=== PATIENT | female | born 1965 | race Caucasian/White ===

== ENCOUNTER 2023-01-23 15:17 | Emergency (ER) | payer MEDICARE ==
[2023-01-23 15:37] VITALS: BP 148/115; PULSE 73; O2SAT 92
--- NOTE | 2023-01-23 16:06 | ERPHSYRPT ---
- History of Present Illness Time Seen by Provider: 01/23/23 15:23 Source: patient Exam Limitations: no limitations Patient Subjective Stated Complaint: Pt c/o pf left knee pain that she has had for a long while stating that she has bone on bone and that she has had it for a long time and she came here to get it fixed Triage Nursing Assessment: Pt brought to the ER by EMS, hypertensive, rates pain as 9/10, chronic knee pain, pt [place] and keeps yelling how they take her boyfriend to the doctor for every little thing but they never take her and her knee has been hurting for a very long time and they neve taker her but she did say that she has had xrays on it before and that it her knee is bone on bone and that she had a fall today and she wanted to come here today to have surgury on it, tried to explain that isn't how it works and I upset the pt more because she wants it done now, pulses normal, skin n/w/d, doesn't appear to be in any distres Physician History: Patient is here with left knee pain. It is chronic. Has been going on for several months. No known trauma. Patient states that she has known arthritis in that knee. She has previously been referred to a orthopedic surgeon. Jordin duran reports today because she is having increasing pain. States that she is having decreased mobility. Patient has no calf pain, thigh pain, shortness of breath. No other symptoms of pulmonary embolism or DVT. No fever or chills. Denies having any joint effusion. Allergies/Adverse Reactions: codeine Allergy (Severe, Verified 12/25/21 14:45) Penicillins Adverse Reaction (Mild, Verified 12/25/21 14:45) Home Medications: Albuterol Sulfate [Albuterol Sulfate Hfa] 1 inh PO Q4-6HPRN PRN 01/25/20 [History] Levothyroxine Sodium 88 mcg PO DAILY 01/25/20 [History] Levothyroxine Sodium 100 mcg PO DAILY 01/25/20 [History] Oxycodone/APAP 5 mg/325 mg [Percocet Tablet 5/325Mg] 1 tab PO Q4-6HPRN PRN 01/25/20 [History] Hx Influenza Vaccination/Date Given: (unknown) Hx Pneumococcal Vaccination/Date Given: (unknown) Immunizations Up to Date: (unknown) Travel Risk - International Travel Have you traveled outside of the country in past 3 weeks: No - Coronavirus Screening Are you exhibiting any of the following symptoms?: No Close contact with a COVID-19 positive Pt in past 14-21 Days: No - Vaccine Status Have you recieved a Covid-19 vaccination: Yes Muck Operator: Unknown - Vaccination Dates Dates if Unknown: unknown - Review of Systems Constitutional: No Fever, No Chills Eyes: No Symptoms Ears, Nose, & Throat: No Symptoms Respiratory: No Cough, No Dyspnea Cardiac: No Chest Pain, No Edema, No Syncope Abdominal/Gastrointestinal: No Abdominal Pain, No Nausea, No Vomiting, No Diarrhea Genitourinary Symptoms: No Dysuria Musculoskeletal: Other, No Back Pain, No Neck Pain Skin: No Rash Neurological: No Dizziness, No Focal Weakness, No Sensory Changes Psychological: No Symptoms Endocrine: No Symptoms All Other Systems: Reviewed and Negative - Past Medical History Pertinent Past Medical History: Yes Respiratory History: Asthma Endocrine Medical History: Hypothyroidism - Past Surgical History Past Surgical History: Yes Gastrointestinal: Cholecystectomy Female Surgical History: Tubal Ligation Other Surgical History: yaniv carpal tunnel, yaniv bone spur, bladder sling - Social History Smoking Status: Never smoker Exposure to second hand smoke: No Drug Use: none Patient Lives Alone: No - Nursing Vital Signs Nursing Vital Signs: Initial Vital Signs Temperature 97.6 F 01/23/23 15:18 Pulse Rate 73 01/23/23 15:18 Blood Pressure 148/115 01/23/23 15:18 O2 Sat by Pulse Oximetry 92 L 01/23/23 15:18 Pain Scale Pain Intensity 9 - Physical Exam General Appearance: no apparent distress, alert Eye Exam: PERRL/EOMI, eyes nml inspection Ears, Nose, Throat Exam: normal ENT inspection, TMs normal, pharynx normal, moist mucous membranes Neck Exam: normal inspection, non-tender, supple, full range of motion Respiratory Exam: normal breath sounds, lungs clear, No respiratory distress Cardiovascular Exam: regular rate/rhythm, normal heart sounds, normal peripheral pulses Gastrointestinal/Abdomen Exam: soft, normal bowel sounds, No tenderness, No mass Back Exam: normal inspection, normal range of motion, No CVA tenderness, No vertebral tenderness Extremity Exam: normal inspection, normal range of motion, pelvis stable Neurologic Exam: alert, oriented x 3, cooperative, normal mood/affect, nml cerebellar function, nml station & gait, sensation nml, No motor deficits Skin Exam: normal color, warm, dry, No rash Lymphatic Exam: No adenopathy SpO2: 92 Comments: 01/23/23 16:04 Left knee tenderness without effusion. No obvious deformity, sensation intact, 2+ capillary refill, 2 point tactile discrimination intact. 5 out of 5 strength. Full range of motion with some pain. Compartments are soft, nontender. Overlying skin shows no tenting, bruising, ecchymosis. - Course Nursing assessment & vital signs reviewed: Yes Ordered Tests: Active Orders 24 hr Category Date Time Status KNEE (3 VIEWS) Stat Exams 01/23/23 15:51 Completed - Progress Progress: improved Progress Note: 01/23/23 16:05 Differential diagnosis includes musculoskeletal pain, arthritis, knee effusion, fracture. Plan for x-ray of the left knee X-ray demonstrates no fracture, severe osteoarthritis given age- my read Patient will need repeat XRs in one week, if pain continues. Return here or see PCP. 01/23/23 17:23 Counseled pt/family regarding: diagnosis, need for follow-up, rad results Medical Desision Making - Independent Historian Additional History obtained from: EMS - Social Determinants of Health Pt's dx & treatment plan are significantly limited by SDOH: illiteracy Limited access to: transportation - Diagnostic Testing Diagnostic test were ordered, analyzed, and reviewed by me: Yes Radiological Interpretation: Interpreted by me - Risk of complications Minimal Risk: Minimal risk of morbidity - Departure Departure Disposition: Home Clinical Impression: Left knee pain Condition: Stable Critical Care Time: No Referrals: ESAU JONES MD [Primary Care Provider] - Follow up/PCP as directed Instructions: Knee Sprain (DC) Additional Instructions: Sprain
--- NOTE | 2023-01-23 16:54 | XRAY ---
CLINICAL HISTORY:knee pain COMPARISON:None; TECHNIQUES:X-ray of the left knee showing 3 views: AP, oblique, and lateral views; FINDINGS: Osteophytes are seen along the articular margin of the tibiofemoral and patellofemoral joint spaces. Narrowing of the medial and lateral compartment of the tibiofemoral joint space is seen, predominently the medial compartment. Spiking of the tibial spine is seen. Few subchondral lucencies are seen likely geodes. No sclerotic or destructive bone changes. No definite fracture or dislocation. No joint effusion in the suprapatellar bursa. Soft tissues appear unremarkable. IMPRESSION: Advanced osteoarthritic changes of the knee joint. DISCLAIMER: A subtle bone abnormality or fracture may not be readily apparent on x-rays, thus clinical correlation and further imaging including follow up CT, MRI, or follow up x-rays are advised as needed. Electronically Signed by: Roe Noriega MD. (01/23/2023 15:48:00 CONVEYOR LOADER)
== END 2023-01-23 17:27 | disposition home or self-care (01) ==
LOC: ED 15:17
DX: M25.562 Pain in left knee (principal); Z79.899 Other long term (current) drug therapy; Z55.0 Illiteracy and low-level literacy; Z59.82 Transportation insecurity
CPT/HCPCS: 73562; 99282